=== PATIENT | male | born 1940 | race Caucasian/White ===

== ENCOUNTER 2017-12-11 09:22 | Outpatient (CLI) | payer MEDICARE ==
--- NOTE | 2017-12-11 12:24 | RAD ---
DOUBLE CONTRAST ESOPHAGRAM: INDICATIONS: Dysphagia. FLUOROSCOPIC TIME: 2.4 minutes TOTAL EXPOSURE: 1545.5 mGy per m2. FINDINGS: The esophagus demonstrated normal contour. There are numerous tertiary contractions at the mid to di stal esophagus. This causes mild contrast holdup on the right lateral decubitus esophagram. There i s a small sized hiatal hernia. No reflux was elicited. 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 There is temporary holdup of the 12.5 mg barium tablet at the level of the gastroesophageal junction. IMPRESSION: 1. Small hiatal hernia. 2. No gastroesophageal reflux demonstrated; however, there are secondary signs for the likely presen ce of gastroesophageal reflux. 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 POS: [facility]
== END 2017-12-11 09:23 | disposition home or self-care (01) ==
LOC: RAD 09:22
PROVIDERS: ATTEND Otolaryngology Otolaryngic Allergy
DX: R13.10 Dysphagia, unspecified (principal); K44.9 Diaphragmatic hernia without obstruction or gangrene
CPT/HCPCS: 74220

== ENCOUNTER 2019-11-09 12:22 | Observation (INO) | payer MEDICARE ==
--- NOTE | 2019-11-09 13:16 | CT ---
CT head noncontrast HISTORY: Fall. Head injury. FINDINGS: There is no evidence of acute intracranial hemorrhage or infarct. Ventricles appear normal in size, shape and position. Mild diffuse cortical atrophy. There is no mass effect or shift of midline structures. IMPRESSION : No acute intracranial abnormalities are demonstrated.
--- NOTE | 2019-11-09 13:20 | CT ---
CT cervical spine noncontrast HISTORY: Fall. Neck injury. FINDINGS: Straightening of the normal lordotic curvature. Vertebral body heights are maintained. Disc space narrowing and minimal degenerative retrolisthesis at the C5-6 level where posterior osteophyte/disc complex, effacing the thecal sac, is greatest. Cervicothoracic alignment is maintaine d. No acute fracture or dislocation are apparent. There are prominent calcification throughout the arterial structures. Nonspecific lobular low-density lesions of the thyroid gland. IMPRESSION : Prominent osseous degenerative changes. No acute osseous abnormalities are demonstrated. Atherosclerosis.
--- NOTE | 2019-11-09 13:28 | CT ---
CT lumbar spine noncontrast HISTORY: Injury. Low back pain. FINDINGS: Vertebral body heights are maintained. There is mild leftward convex rotatory scoliotic cur vature. Prominent osteophytosis throughout the vertebral bodies and facets. Posterior disc bulges most pronounced at the L3-4 and L5-S1 levels. Well-corticated horizontal defect through the left L3 p osterior facet may represent an old injury or congenital anomaly. Calcification throughout the arterial structures. Images partially showing the left retroperitoneum partially show an ill-defined area, just below the left kidney, of density slightly less than kidney and muscle. Possible injury. IMPRESSION : Prominent osseous degenerative changes of the lumbar spine. No acute osseous abnormalities are demons trated. Partially visualized left retroperitoneal findings/abnormality. Possibly an injury of the kidney. If symptoms are referable to the left flank, please consider CT abdomen/pelvis with contrast. Atherosclerosis. Findings were called to Dr. Augustin in the emergency department at 1320 hours. Code CR.
[2019-11-09] MEDS ORDERED: Ketorolac Tromethamine 30 MG/ML VIAL ONE ×2 (13:33→21:40)
[2019-11-09] MEDS ORDERED: Morphine 2 MG/ML SYRINGE ONE (13:33)
[2019-11-09] MEDS ORDERED: Iopamidol-370 76% 500 ML 1 ML ONE (13:33)
[2019-11-09] MEDS ORDERED: Bacitracin 1 PK ONE (13:51)
[2019-11-09 15:13] LABS: #Eosinphils 0.1 thou/uL (0.0-0.7); #Lymphocytes 1.6 thou/uL (1.20-3.40); #Neutrophils 11.4 thou/uL (1.40-6.50); %Basophils 0.2 % (0.0-1.0); %Eosinophils 0.5 % (0.0-10.0); %Lymphocytes 11.2 % (21.0-51.0); %Monocytes 6.7 % (0.0-10.0); %Neutrophils 81.4 % (42.0-75.0); Hemoglobin 14.4 g/dL (14.0-18.0); Mean Corpuscular HGB CONC 34.5 g/dL (32.0-36.0); Mean Corpuscular Hemoglobin 30.5 pg (27.0-31.0); Mean Corpuscular Volume 88.3 fL (78.0-98.0); Mean Platelet Volume 8.4 fL (7.4-10.4); Platelet Count 172 thou/uL (130-400); RBC Distribution Width 12.6 % (11.5-14.5); Red Blood Cell (RBC) Count 4.72 mill/uL (4.70-6.10)
[2019-11-09 15:38] LABS: ALT (SGPT) 29 U/L (8-55); AST (SGOT) 36 U/L (5-34); Albumin 3.9 g/dL (3.4-4.8); Alkaline Phosphatase 87 U/L (40-110); Anion Gap 11 mmol/L (10-20); BUN (Urea Nitrogen) 15 mg/dL (8.4-25.7); Bilirubin, Total 0.6 mg/dL (0.2-1.2); Calc. Creatinine Clearance 0 mL/min (70-130); Calcium 8.6 mg/dL (7.8-10.44); Carbon Dioxide 25 mmol/L (23-31); Chloride 107 mmol/L (98-107); Estimated GFR-MDRD 75; Globulin 2.3 g/dL (2.4-3.5); Glucose 95 mg/dL (83-110); Potassium 4.4 mmol/L (3.5-5.1); Protein, Total 6.2 g/dL (5.8-8.1); Sodium 139 mmol/L (136-145)
--- NOTE | 2019-11-09 16:55 | CT ---
CT ABDOMEN AND PELVIS PERFORMED WITH CONTRAST ENHANCEMENT: History: Fall. Abnormality noted in the left side of the retroperitoneum on the CT of the lumbar spin e. Comparison: CT earlier today; MRI 09-02-18 FINDINGS: The lung bases are clear of any infiltrative process. There appears to be some element of COPD type c hanges present. The liver shows mild fatty change. The spleen, pancreas, and gallbladder regions appear unremarkable. Right and left adrenal glands are normal. Right and left kidneys are normal in size. There is a nonob structing approximately 5-6 mm mid pole left renal calculus. The density seen on the previous lumbar spine CT corresponds to a large cyst which is an exophytic cyst involving the posterior cortex of the left kidney. There is some fat stranding within the adjacent fat but when reviewing the MRI study, i t has a fairly similar appearance to what was seen on the prior examination. Smaller cyst is seen nex t to this larger 6.6 cm cyst. There are other hypodensities involving both kidneys also noted. There is no significant periaortic or mesenteric adenopathy. Diverticulosis of the colon, most pronounced i n the sigmoid region, is seen. No adenopathy or mass. No signs of any fractures of the bony pelvic ri ng. IMPRESSION: 1. The left sided retroperitoneal abnormality corresponds to a large exophytic cyst involving the lef t kidney. No signs of renal injury. 2. Nonobstructing midpole left renal calculus. 3. Colonic diverticulosis. [place]: [facility]
[2019-11-09] MEDS ORDERED: Senokot S 8.6-50 MG TAB PO PRN (17:03)
[2019-11-09] MEDS ORDERED: Acetaminophen 325 MG TAB PO PRN (17:03)
[2019-11-09 17:44] LABS: Bacteria/HPF None Seen HPF (None Seen); Bilirubin Negative (Negative); Blood, Urine Trace (Negative); Clarity Clear (Clear); Glucose, Urine (Dipstick) Normal (Negative); Leukocyte 75 Leu/uL (Negative); Nitrite Negative (Negative); Protein, Urine (Dipstick) 30 mg/dL (Neg-Trace); Squamous Epithelial 0-3 HPF (0-3); Urobilinogen Normal mg/dL (Less than 2); WBC/HPF 21-50 HPF (0-3)
[2019-11-09] MEDS ORDERED: Acetaminophen 650 MG Suppository PR PRN (17:46)
--- NOTE | 2019-11-09 18:28 | PDOC.HHP ---
Hospitalist HPI - History of Present Illness Fall History of Present Illness: Patient presents following a fall off a ladder while hanging pictures in his home. He fell from a 7ft height and states he does not know what caused him to call. Unsure if he was dizzy or if he missed a step. He denies losing any consciousness. He fell on his back and hit his head. He recalls having pain in his tailbone and lower back. States after a couple of minutes he tried to get up but fell again. Unsure if he was dizzy or lightheaded. Thinks it was probably due to the amount of pain he had on his body. At present he denies any pain. States he feels significantly better. Reports having tingling in both thumbs. Otherwise no weakness or tingling anywhere else on his body or face. No speech changes. No vision changes. No n/v. Denies any chest pain or shortness of breath. Denies any dizziness. States he has been in his usual state of health in recent days. 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 Denies any symptoms like this today. ED Course: Noted to be Orthostatic in the ED. Even after receiving IV Fluids. He was given additional fluids. EKG showed NSR, HR 58. No ST changes or T wave abnormalities. Labs done notable for leukocytosis. No fever. CT Head negative. CT cervical spine: Prominent osseous degenerative changes. No acute osseous abnormalities are demonstrated. Atherosclerosis. CT lumbar spine noncontrast: There is mild leftward convex rotatory scoliotic cur vature. Prominent osteophytosis throughout the vertebral bodies and facets. Posterior disc bulges most pronounced at the L3-4 and L5-S1 levels. Well-corticated horizontal defect through the left L3 p osterior facet may represent an old injury or congenital anomaly. Calcification throughout the arterial structures. Images partially showing the left retroperitoneum partially show an ill-defined area, just below the left kidney, of density slightly less than kidney and muscle. Possible injury. CT A/P: Left sided retroperitoneal abnormality corresponds to a large exophytic cyst involving the left kidney. No signs of renal injury. Nonobstructing midpole left renal calculus. Colonic diverticulosis. Given toradol and morphine for pain. Total of 2L NS IV Hospitalist ROS - Review of Systems Constitutional: denies: fever, chills, sweats, weakness, malaise, other Eyes: denies: pain, vision change, conjunctivae inflammation, eyelid inflammation, redness, other ENT: denies: ear pain, ear discharge, nose pain, nose discharge, nose congestion , mouth pain, mouth swelling, throat pain, throat swelling, other Respiratory: denies: cough, dry, shortness of breath, hemoptysis, SOB with excertion, pleuritic pain, sputum, wheezing, other Cardiovascular: denies: chest pain, palpitations, orthopnea, paroxysmal noc. dyspnea, edema, light headedness, other Gastrointestinal: denies: nausea, vomiting, abdominal pain, diarrhea, constipation, melena, hematochezia, other Genitourinary: denies: dysuria, frequency, incontinence, hematuria, retention, other Musculoskeletal: reports: back pain. denies: neck pain, shoulder pain, arm pain , hand pain, leg pain, foot pain, other Skin: denies: rash, lesions, april, bruising, other Neurological: reports: other (tingling in both thumbs, new, no pain or swelling) . denies: weakness, numbness, incoordination, change in speech, confusion, seizures Hospitalist History - Past Medical History Source: patient Cardiac: reports: Hyperlipidemia CORPORATE DIRECTOR TALENT ASSESSMENT: reports: TIA Psych: reports: Depression - Past Surgical History Past Surgical History: reports: TURP - Social History Smoking Status: Never smoker Alcohol: reports: Occassional Drugs: reports: none Living Situation: With Family Activity level: independent ambulation - Exam General Appearance: NAD, awake alert Eye: PERRL, anicteric sclera ENT: normocephalic atraumatic, no oropharyngeal lesions, moist mucosa Neck: supple, symmetric, no lymphadenopathy Heart: RRR, no murmur, no gallops, normal peripheral pulses Respiratory: CTAB, no wheezes, no rales, normal chest expansion, no tachypnea Gastrointestinal: soft, non-tender, non-distended, normal bowel sounds, no guarding, no rigidity Extremities: no cyanosis, no clubbing, no edema Skin: no rashes Neurological: cranial nerve grossly intact, normal sensation to touch, no weakness, no focal deficits Musculoskeletal: normal tone, normal strength, no muscle wasting Psychiatric: normal affect, normal behavior, A&O x 3 Hospitalist Results - Labs Result Diagrams: 11/09/19 14:54 11/09/19 14:54 Lab results: WBC 14.0 thou/uL (4.8-10.8) H 11/09/19 14:54 Hgb 14.4 g/dL (14.0-18.0) 11/09/19 14:54 Hct 41.7 % (42.0-52.0) L 11/09/19 14:54 MCV 88.3 fL (78.0-98.0) 11/09/19 14:54 Plt Count 172 thou/uL (130-400) 11/09/19 14:54 Neutrophils % 81.4 % (42.0-75.0) H 11/09/19 14:54 Sodium 139 mmol/L (136-145) 11/09/19 14:54 Potassium 4.4 mmol/L (3.5-5.1) 11/09/19 14:54 Chloride 107 mmol/L (98-107) 11/09/19 14:54 Carbon Dioxide 25 mmol/L (23-31) 11/09/19 14:54 BUN 15 mg/dL (8.4-25.7) 11/09/19 14:54 Creatinine 0.97 mg/dL (0.7-1.3) 11/09/19 14:54 Glucose 95 mg/dL (83-110) 11/09/19 14:54 Calcium 8.6 mg/dL (7.8-10.44) 11/09/19 14:54 Total Bilirubin 0.6 mg/dL (0.2-1.2) 11/09/19 14:54 AST 36 U/L (5-34) H 11/09/19 14:54 ALT 29 U/L (8-55) 11/09/19 14:54 Alkaline Phosphatase 87 U/L (40-110) 11/09/19 14:54 Troponin I Less than 0.010 ng/mL (< 0.028) 11/09/19 14:54 Serum Total Protein 6.2 g/dL (5.8-8.1) 11/09/19 14:54 Albumin 3.9 g/dL (3.4-4.8) 11/09/19 14:54 Urine Ketones Negative mg/dL (Negative) 11/09/19 17:23 Urine Blood Trace (Negative) A 11/09/19 17:23 Urine Nitrite Negative (Negative) 11/09/19 17:23 Ur Leukocyte Esterase 75 Wilder/uL (Negative) A 11/09/19 17:23 Urine RBC 4-6 HPF (0-3) A 11/09/19 17:23 Urine WBC 21-50 HPF (0-3) A 11/09/19 17:23 Ur Squamous Epith Cells 0-3 HPF (0-3) 11/09/19 17:23 Urine Bacteria None Seen HPF (None Seen) 11/09/19 17:23 - Radiology Interpretation CT scan - head Status: report reviewed by me CT scan - abdomen Status: report reviewed by me Hospitalist H&P A/P - Problem (1) Fall Code(s): W19.XXXA - UNSPECIFIED FALL, INITIAL ENCOUNTER Status: Acute (2) Orthostatic hypotension Code(s): I95.1 - ORTHOSTATIC HYPOTENSION Status: Acute (3) History of TIA (transient ischemic attack) Code(s): Z86.73 - PRSNL HX OF TIA (TIA), AND CEREB INFRC W/O RESID DEFICITS Status: Acute (4) Leukocytosis Code(s): D72.829 - ELEVATED WHITE BLOOD CELL COUNT, UNSPECIFIED Status: Acute (5) Depression Code(s): F32.9 - MAJOR DEPRESSIVE DISORDER, SINGLE EPISODE, UNSPECIFIED Status : Acute (6) Hyperlipidemia Code(s): E78.5 - HYPERLIPIDEMIA, UNSPECIFIED Status: Acute - Plan Plan: Cardiac monitoring. Echo and carotid US ordered. Continue IV fluids. Consider cardiology consult for event monitor, possible cardiogenic cause. Hold lovenox until 24 hours without signs/symptoms of bleeding. Monitor BP, including orthostatic BPs. UA/UCx. Monitor WBC. No signs or symptoms of underlying infection at present. Neuro checks overnight. CODE STATUS: FULL Surrogate decision maker: His Jeanine Orourke.
[2019-11-09 18:47] LABS: Troponin I 0.012 ng/mL (< 0.028)
[2019-11-09] MEDS ORDERED: Sodium Chloride 0.9% 1,000 ML IV SCH (19:04)
[2019-11-09 19:33] VITALS: BMI 29.7
[2019-11-09] MEDS ORDERED: Atorvastatin Calcium 40 MG TAB PO SCH (21:00)
[2019-11-09 21:30] LABS: Troponin I Less than 0.010 ng/mL (< 0.028)
[2019-11-09] MEDS ORDERED: Gabapentin 300 MG CAP PO PRN (21:34)
[2019-11-09] MEDS ORDERED: traMADol HCl 50 MG TAB PO PRN (21:34)
[2019-11-09] MEDS: Ketorolac Tromethamine 10 MG TAB PO SCH (21:54)
--- NOTE | 2019-11-09 22:00 | ULT ---
BILATERAL CAROTID DUPLEX ULTRASOUND: History: Syncope. History of TIA. FINDINGS: Real-time imaging of the right and left carotid systems was performed. There is calcified plaque form ation at the origin of both internal carotid arteries. On the right side peak systolic velocities of the common carotid were 122 cm/sec with internal caroti d velocities of 141 cm/sec and external carotid velocities of 100 cm/sec. On the left side peak systolic velocity of the common carotid 104 cm/sec. Internal carotid velocities 111 cm/sec, external carotid velocities 107 cm/sec. Vertebral flow is antegrade bilaterally. IMPRESSION: 1. Findings suggesting 50-69% stenosis of the right internal carotid artery based on peak systolic ve locity measurement ratios and diastolic velocity measurements would suggest less than 50% narrowing. 2. No significant stenosis of the left internal carotid artery. 3. Mild stenosis incidentally noted of the left external carotid artery. POS: [facility]
[2019-11-10 04:31] LABS: Bilirubin Negative (Negative); Blood, Urine Negative (Negative); Clarity Clear (Clear); Glucose, Urine (Dipstick) Normal (Negative); Leukocyte 250 Leu/uL (Negative); Nitrite Negative (Negative); Protein, Urine (Dipstick) Negative (Neg-Trace); RBC/HPF 0-3 HPF (0-3); Squamous Epithelial 0-3 HPF (0-3); Urobilinogen Normal mg/dL (Less than 2); WBC/HPF 21-50 HPF (0-3)
[2019-11-10 04:34] LABS: Bacteria/HPF 1+ HPF (None Seen); Urine Culture Reflex Yes Yes
[2019-11-10 04:52] LABS: #Basophils 0.1 thou/uL (0.0-0.2); #Eosinphils 0.1 thou/uL (0.0-0.7); #Lymphocytes 2.1 thou/uL (1.20-3.40); #Monocytes 0.7 thou/uL (0.11-0.59); #Neutrophils 5.2 thou/uL (1.40-6.50); %Basophils 0.7 % (0.0-1.0); %Eosinophils 1.4 % (0.0-10.0); %Lymphocytes 25.7 % (21.0-51.0); %Monocytes 8.2 % (0.0-10.0); Hemoglobin 12.3 g/dL (14.0-18.0); Mean Corpuscular HGB CONC 33.5 g/dL (32.0-36.0); Mean Corpuscular Hemoglobin 29.8 pg (27.0-31.0); Mean Corpuscular Volume 88.8 fL (78.0-98.0); Mean Platelet Volume 8.8 fL (7.4-10.4); Platelet Count 156 thou/uL (130-400); RBC Distribution Width 12.9 % (11.5-14.5); Red Blood Cell (RBC) Count 4.13 mill/uL (4.70-6.10); White Blood Cell (WBC) Count 8.1 thou/uL (4.8-10.8)
[2019-11-10 05:12] LABS: Anion Gap 10 mmol/L (10-20); BUN (Urea Nitrogen) 14 mg/dL (8.4-25.7); Calc. Creatinine Clearance 92 mL/min (70-130); Carbon Dioxide 22 mmol/L (23-31); Cardiac Risk 6.3 (Less than 4.5); Chloride 110 mmol/L (98-107); Cholesterol 165 mg/dl (< 200 Desired); Estimated GFR-MDRD 85; Glucose 99 mg/dL (83-110); HDL Cholesterol 26 mg/dL (>60 Neg Risk); LDL Cholesterol, Calculated 106 mg/dL; Potassium 4.1 mmol/L (3.5-5.1); Sodium 138 mmol/L (136-145); Triglycerides 165 mg/dL (Less than 150)
[2019-11-10] MEDS: Ketorolac Tromethamine 10 MG TAB PO SCH ×2 (05:22→13:00)
[2019-11-10] MEDS ORDERED: hydrOXYzine 25 MG TAB PO SCH (09:00)
[2019-11-10] MEDS ORDERED: Enoxaparin Sodium 40 MG/0.4 ML SYRINGE SC SCH (09:00)
[2019-11-10] MEDS ORDERED: Cyanocobalamin (Vitamin B-12) 1,000 MCG TAB PO SCH (09:00)
[2019-11-10] MEDS ORDERED: Aspirin 81 mg Enteric Coated Tablet PO SCH (09:00)
[2019-11-10 13:52] VITALS: TEMP 98.3
[2019-11-10 16:01] VITALS: BP 131/59
--- NOTE | 2019-11-10 18:26 | CON ---
DATE OF CONSULTATION: REASON FOR CONSULTATION: Presyncope. HISTORY OF PRESENT ILLNESS: Mr. Orourke is a 78-year-old gentleman, who has not been seen or evaluated by Cardiology in the past. He states he was in a ladder yesterday where he fell. He states he did not lose consciousness, but became dizzy, lightheaded while on the ladder. He fell with no significant trauma present. No previous history of CAD, true syncope in the past. PAST MEDICAL HISTORY: Hyperlipidemia, previous TIA, depression. PAST SURGICAL HISTORY: TURP. HOME MEDICATIONS: Outlined in the chart. REVIEW OF SYSTEMS: Ten-point review of systems is reviewed and as above, otherwise negative. PHYSICAL EXAMINATION: GENERAL: Patient is a pleasant male, who is in no acute distress. The patient appears their stated age. VITAL SIGNS: Blood pressure 131/59, pulse 61, temp 98.3. NEUROLOGIC: The patient is alert and oriented x3 with no focal neurologic deficits. HEENT: Sclerae without icterus. Mouth has moist mucous membranes with normal pallor. NECK: No JVD. Carotid upstroke brisk. No bruits bilaterally. LUNGS: Clear to auscultation with unlabored respirations. BACK: No scoliosis or kyphosis. CARDIAC: Regular rate and rhythm with normal S1 and S2. No S3 or S4 noted. No significant rubs, murmurs, thrills, or gallops noted throughout the precordium. PMI is not displaced. There is no parasternal heave. ABDOMEN: Soft, nontender, nondistended. No peritoneal signs present. No hepatosplenomegaly. No abnormal striae. EXTREMITIES: 2+ femoral and 2+ dorsalis pedis pulses. No cyanosis, clubbing, or edema. SKIN: No gross abnormalities. PERTINENT LABORATORY DATA: CK troponin negative. Hemoglobin 12.3, platelet count 156. IMAGING STUDIES: EKG normal sinus rhythm, nonspecific ST-T wave changes. IMPRESSION: 1. Presyncope. 2. Lightheadedness. 3. Dizziness. RECOMMENDATIONS: So far, Mr. Orourke's workup has been negative. At this point, recommend a 3-week event recorder. His overall LVEF does appear normal. The patient was told to try and refrain from driving given the acute episode. Event recorder was placed. The patient will follow up in next 1 to 2 weeks. Job ID: [id number]
--- NOTE | 2019-11-10 18:57 | DIS ---
DATE OF ADMISSION: 11/09/2019 DATE OF DISCHARGE: 11/10/2019 DISCHARGE DIAGNOSES: 1. Syncope. 2. Mechanical fall. 3. History of transient ischemic attacks. 4. Orthostatic hypotension, resolved. 5. Depression. HOSPITAL COURSE: The patient is a very pleasant 78-year-old male, who initially presented to the hospital after having a fall. The patient was not a very good historian, could not really tell as if he had a syncopal episode versus lost balance. At this time, given his age and his comorbidities, he underwent a cardiac workup including a loop monitor placed and also an echocardiogram. His echocardiogram indicated an EF of 55% to 60% with diastolic dysfunction. He was noted to have orthostatic hypotensions, which were positive in the ER. He was given about 2 L of normal saline. He is not on any blood pressure medications at home. After talking with him, he stated that he had not eaten anything all day when he was doing his work at home. He did have a CT of brain, cervical spine CT and lumbar, and abdomen and pelvis CT. The abdomen and pelvis CT indicated left-sided retroperitoneal abnormality corresponding to a large exophytic cyst involving the left kidney. He was asked to follow up this as an outpatient, also a nonobstructing left renal calculi was noted, and chronic colonic diverticulosis was also noted. He also had carotid Dopplers that did not have any significant stenosis. He did have about 60% to 69% stenosis in the right internal carotid artery, however, suggested less than 50% narrowing. He was seen by Cardiology, underwent a loop monitor placement. He has been in sinus rhythm while he was in the hospital. He will be discharged home. He will follow up with his primary and Cardiology for the loop monitor. HOME MEDICATIONS: 1. Aspirin. 2. Flexeril. 3. Colace. 4. Omeprazole. 5. Albuterol. 6. Gabapentin. 7. Tramadol, he takes as needed. 8. Pravastatin. 9. Zoloft. 10. Hydroxyzine. PHYSICAL EXAMINATION: VITAL SIGNS: Temperature 98.3, pulse 63, respiratory rate 16, oxygen saturation 93% on room air, and blood pressure 144/66. GENERAL: He is awake, alert, and oriented x3. Does not appear in distress. CV: S1 and S2 present. No murmurs, rubs, or gallops. ABDOMEN: Soft and nontender. Bowel sounds are present x2. Again, he will be discharged home. He will follow up with his Primary and Cardiology. Job ID: [id number]
[2019-11-10] MEDS ORDERED: Pravastatin Sodium 20 MG TAB PO SCH (21:00)
[2019-11-10] MEDS ORDERED: Atorvastatin Calcium 40 MG TAB PO SCH (21:00)
--- NOTE | 2019-11-12 13:48 | EKG ---
Test Reason : DIZZINESS Blood Pressure : / mmHG Vent. Rate : 058 BPM Atrial Rate : 058 BPM P-R Int : 198 ms QRS Dur : 096 ms QT Int : 442 ms P-R-T Axes : 063 012 057 degrees QTc Int : 433 ms Sinus bradycardia Otherwise normal ECG Confirmed by LIANG THAKUR, LLOYD ([id number]), graphics editor BARBARA BENNETT ([id number]) on 11/12/2019 1:48:26 PM Referred By: LIANG Confirmed By:LLOYD TAVERA MD
== END 2019-11-10 17:50 | disposition home or self-care (01) ==
LOC: ERS 12:22 → 2SW 17:03
PROVIDERS: ADMIT Internal Medicine; ATTEND Internal Medicine
DX: I95.1 Orthostatic hypotension (principal); I65.22 Occlusion and stenosis of left carotid artery; E78.5 Hyperlipidemia, unspecified; F32.9 Major depressive disorder, single episode, unspecified; D72.829 Elevated white blood cell count, unspecified; N28.1 Cyst of kidney, acquired; N20.0 Calculus of kidney; K57.30 Diverticulosis of large intestine without perforation or abscess without bleeding; Z79.82 Long term (current) use of aspirin; Z79.899 Other long term (current) drug therapy; Z86.73 Personal history of transient ischemic attack (TIA), and cerebral infarction without residual deficits; Z88.0 Allergy status to penicillin; W11.XXXA Fall on and from ladder, initial encounter
CPT/HCPCS: 70450; 72125; 72131; 74177; 80048; 80053; 80061; 81001; 82533; 82607; 82746; 83735; 84484 ×2; 85025 ×2; 87086; 87186; 93005; 93306; 93880; 96361; 96374; 96375; 97110; 97116; 97139 ×2; 99285; G0378 ×3; 36415; 81003; 81015; J1885; J2270; Q9967

== ENCOUNTER 2025-05-26 12:52 | Outpatient (CLI) | payer OTHER | END 2025-05-26 12:53 | disposition home or self-care (01) | LOC: ULT 12:52 | PROVIDERS: ATTEND Registered Nurse | DX: N28.1 Cyst of kidney, acquired (principal) | CPT/HCPCS: 76770 ==